=== PATIENT | female | born 1965 | race African-American/Black ===

== ENCOUNTER 2016-11-24 10:23 | Outpatient (CLI) | payer OTHER ==
--- NOTE | 2016-11-24 11:28 | Ultrasound Report ---
Ultrasound of the neck and shoulder Patient presents with recent neck pain and chronic soft tissue thickening over her left shoulder. The patient has a relatively soft area if this thickened soft tissues over the left supraclavicular region. Imaging in this region demonstrates inhomogeneously thickened subcutaneous tissue which is generally hypoechogenic and consistent with fat. The margins are not discrete. Imaging of the left neck in areas defined by the patient fails to identify any echogenic abnormality. 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 No abnormal neck findings.
== END 2016-11-24 10:24 | disposition home or self-care (01) ==
LOC: US 10:23
PROVIDERS: ATTEND General Practice
DX: R22.30 Localized swelling, mass and lump, unspecified upper limb (principal)
CPT/HCPCS: 76536

== ENCOUNTER 2018-09-14 23:55 | Emergency (ER) | payer OTHER ==
--- NOTE | 2018-09-15 03:39 | Emergency Department Report ---
ED Animal Bite HPI - General Chief Complaint: Animal Bite Stated Complaint: DOG BITE ON HAND Time Seen by Provider: 09/15/18 03:32 Source: patient Mode of arrival: Ambulatory Limitations: No Limitations - History of Present Illness Initial Comments: 53-year-old female female brought in for dog bite by a friend's dog to her right hand. Patient reports that animal control has been notified she reports that the dogs is a house dog. She reports that the dog is up-to-date on his rabies vaccination. Patient reports she has a history of diabetes hypertension and is on oral medication for diabetes. Patient reports pain is 7 out of 10. MD Complaint: animal bite -: This evening Right: Hand Animal: dog Animal Control Notified: Yes Description: household pet Mechanism: scratch Severity scale (0 -10): 7 Context: unprovoked Associated Symptoms: none Treatments Prior to Arrival: irrigation - Related Data Previous Rx's Medication Instructions Recorded Last Taken Type Amoxicillin/K Clav Tab [Augmentin 1 tab PO Q12HR #20 tab 09/15/18 Unknown Rx 875 mg] Ibuprofen [Motrin 600 MG tab] 600 mg PO Q8H PRN #12 tablet 09/15/18 Unknown Rx Allergies Allergy/AdvReac Type Severity Reaction Status Date / Time No Known Allergies Allergy Unverified 11/24/16 10:23 ED Review of Systems ROS: Stated complaint: DOG BITE ON HAND Other details as noted in HPI Comment: All other systems reviewed and negative ED Past Medical Hx - Past Medical History Previous Medical History?: Yes Hx Hypertension: Yes Hx Diabetes: Yes Additional medical history: High Cholesterol - Surgical History Past Surgical History?: No - Social History Smoking Status: Never Smoker Substance Use Type: None - Medications Home Medications: Home Medications Medication Instructions Recorded Confirmed Last Taken Type Amoxicillin/K Clav Tab [Augmentin 1 tab PO Q12HR #20 tab 09/15/18 Unknown Rx 875 mg] Ibuprofen [Motrin 600 MG tab] 600 mg PO Q8H PRN #12 tablet 09/15/18 Unknown Rx ED Physical Exam - General Limitations: No Limitations General appearance: alert, in no apparent distress - Head Head exam: Present: atraumatic, normocephalic - Eye Eye exam: Present: EOMI - ENT ENT exam: Present: mucous membranes moist - Neck Neck exam: Present: normal inspection - Neurological Exam Neurological exam: Present: alert, oriented X3 - Psychiatric Psychiatric exam: Present: normal affect, normal mood - Expanded Skin Exam Expanded Type of lesion: Present: bite/sting (no puncture wounds just abrasions. Fingers 1,3 and 4) Distribution of rash: RLE Description of rash: Present: tenderness. Absent: swelling ED Course Vital Signs 09/15/18 09/15/18 00:02 00:47 Temperature 99.1 F 99.1 F Pulse Rate 77 78 Respiratory 18 18 Rate Blood Pressure 118/72 118/72 O2 Sat by Pulse 98 98 Oximetry Critical care attestation.: If time is entered above; I have spent that time in minutes in the direct care of this critically ill patient, excluding procedure time. ED Disposition Clinical Impression: Animal bite of finger Qualifiers: Encounter type: initial encounter Qualified Code(s): S61.259A - Open bite of unspecified finger without damage to nail, initial encounter Disposition: TO HOME OR SELFCARE Is pt being admited?: No Does the pt Need Aspirin: No Condition: Stable Instructions: Animal Bite (ED) Additional Instructions: Please complete her antibiotics as prescribed. Pain medication as needed. Please keep wound clean and dry. Follow-up with the primary care provider if his symptoms persist or gets worse. Prescriptions: Amoxicillin/K Clav Tab [Augmentin 875 mg] 1 tab PO Q12HR #20 tab Ibuprofen [Motrin 600 MG tab] 600 mg PO Q8H PRN #12 tablet PRN Reason: Pain Referrals: PETER HERNANDEZ MD [Primary Care Provider] - 3-5 Days
== END 2018-09-15 03:49 | disposition home or self-care (01) ==
LOC: ED 23:55
CPT/HCPCS: 99282